=== PATIENT | female | born 1980 | race Caucasian/White ===

== ENCOUNTER 2016-08-31 19:19 | Observation (INO) ==
[2016-08-31] MEDS ORDERED: LORazepam 2 MG/1 ML VIAL IM STA (19:30)
[2016-08-31] MEDS ORDERED: SODIUM CHLORIDE 0.9% 1,000 ML IV STA (20:03)
[2016-08-31 20:38] LABS: Apearance,Urine Slightly Hazy (Clear); Bilirubin,Urine Negative (Negative); Blood, Urine Negative (Negative); Glucose,Urine (UA) Negative (Negative); Ketones,Urine Negative (Negative); Mucus,Urine Occasional /LPF (Occasional); Nitrite,Urine Negative (Negative); Protein,Urine Negative; Squamous Epithelial Cell,Urine Occasional /HPF (0-10); Urine Color Yellow (Yellow); Urine Specific Gravity 1.008 (1.001-1.035); Urine Urobilinogen < 2.0 EU/DL (0.2-1.0); WBC,Urine 3 /HPF (0-6)
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
[2016-08-31 20:45] LABS: Barbiturates Screen,Urine Negative (Negative); Benzodiazepines Screen,Urine Negative (Negative); Cannabinoid Screen,Urine Negative (Negative); Opiate Screen,Urine Negative (Negative); Phencyclidine Screen,Urine Negative (Negative)
[2016-08-31 20:50] LABS: Basophils # 0.1 10*3/uL (0.0-0.2); Basophils % 1.1 % (0.0-0.8); Eosinophils # 0.1 10*3/uL (0.0-0.87); Eosinophils % 1.9 % (0.00-10.9); Hematocrit 26.9 VOL% (35.7-47.0); Hemoglobin 8.5 GM/DL (12.0-16.0); Immature Granulocytes % 0.5 %; Immature Granulocytes Absolute 0.03 #; Lymphocytes # 1.6 10*3/uL (1.4-4.0); Lymphocytes % 25.8 % (21.3-54.2); Mean Corpuscular HGB Conc 31.6 GM/DL (32-36); Mean Corpuscular Hemoglobin 32 PG (27-34); Mean Corpuscular Volume 100.4 FL (87-102); Mean Platelet Volume 9.8 FL (9.6-12.0); Monocytes # 0.6 10*3/uL (0.11-0.8); Monocytes % 9.9 % (1.7-12.7); Neutrophils # 3.8 10*3/uL (1.4-7.4); Neutrophils % 60.8 % (38.7-73.9); Platelet Count 139 T/CUMM (130-400); Red Blood Count 2.68 MC/CUMM (3.8-5.5); Red Cell Distribution Width 17.2 % (9.3-17.3); White Blood Count 6.2 T/CUMM (4-12)
[2016-08-31 20:58] LABS: Alanine Aminotransferase 43 U/L (13-56); Albumin 2.7 G/DL (3.4-5.0); Alkaline Phosphatase 274 U/L (45-117); Aspartate Amino Transferase 113 U/L (0-37); Bilirubin,Total < 0.39 MG/DL (0.2-1.0); Blood Urea Nitrogen 7 MG/DL (7-18); Glucose 100 MG/DL (74-106); Osmolality,Calculated 291.3 MOS/KG (273-304); Sodium 148 MMOL/L (136-145); Total Protein 6.5 G/DL (6.4-8.3)
[2016-08-31] MEDS ORDERED: POTASSIUM CHLORIDE 20 MEQ TABLET PO STA (21:16)
[2016-08-31] MEDS ORDERED: LORazepam 2 MG/1 ML VIAL ONE (21:19)
[2016-08-31] MEDS ORDERED: POTASSIUM CHLORIDE 20 MEQ TABLET PO ONE (21:20)
[2016-08-31] MEDS ORDERED: LORazepam 2 MG/1 ML VIAL IV STA (21:22)
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
[2016-09-01] MEDS ORDERED: SODIUM CHLORIDE 0.9% 1,000 ML IV SCH (01:07)
[2016-09-01] MEDS ORDERED: LORazepam 2 MG/1 ML VIAL IV STA (01:07)
[2016-09-01] MEDS ORDERED: ACETAMINOPHEN 325 MG TABLET PO PRN (01:07)
[2016-09-01] MEDS ORDERED: ONDANSETRON 4 MG/2 ML VIAL IV PRN (01:07)
[2016-09-01] MEDS: POTASSIUM CHLORIDE 20 MEQ TABLET PO SCH ×3 (01:18→21:49)
[2016-09-01 01:32] LABS: Anisocytosis Slight; Hypochromasia 1+; Platelet Estimate Adequate
[2016-09-01] MEDS: LORazepam 2 MG/1 ML VIAL IV SCH ×6 (01:42→21:51)
[2016-09-01] MEDS ORDERED: PHENYTOIN INJ 1,000 MG in SODIUM CHLORIDE 0.9% 100 ML IV ONE (02:00)
[2016-09-01] MEDS: PIPERACILLIN/TAZOBACTAM 3,375 MG in SODIUM CHLORIDE 0.9% 100 ML IV SCH ×2 (03:04→10:40)
[2016-09-01 06:03] LABS: Basophils % 0.9 % (0.0-0.8); Eosinophils # 0.1 10*3/uL (0.0-0.87); Eosinophils % 2.2 % (0.00-10.9); Hematocrit 24.3 VOL% (35.7-47.0); Hemoglobin 7.5 GM/DL (12.0-16.0); Immature Granulocytes % 0.4 %; Immature Granulocytes Absolute 0.02 #; Lymphocytes # 1.1 10*3/uL (1.4-4.0); Lymphocytes % 23.9 % (21.3-54.2); Mean Corpuscular HGB Conc 30.9 GM/DL (32-36); Mean Corpuscular Hemoglobin 31 PG (27-34); Mean Corpuscular Volume 100.8 FL (87-102); Mean Platelet Volume 9.9 FL (9.6-12.0); Monocytes # 0.7 10*3/uL (0.11-0.8); Monocytes % 14.4 % (1.7-12.7); Neutrophils # 2.7 10*3/uL (1.4-7.4); Neutrophils % 58.2 % (38.7-73.9); Platelet Count 123 T/CUMM (130-400); Red Blood Count 2.41 MC/CUMM (3.8-5.5); Red Cell Distribution Width 17.7 % (9.3-17.3); White Blood Count 4.6 T/CUMM (4-12)
[2016-09-01 06:33] LABS: Albumin 2.4 G/DL (3.4-5.0); Bilirubin,Total 0.9 MG/DL (0.2-1.0); Calcium 7.3 MG/DL (8.5-10.1); Magnesium 1.6 MG/DL (1.8-2.4); Potassium 3.5 MMOL/L (3.5-5.1)
--- NOTE | 2016-09-01 08:11 | XRay Report ---
XR chest 1V portable Indication: Abnormal breath sounds Comparison: None available Findings: The heart and mediastinum are normal in size and configuration. The pulmonary vascularity is normal in caliber. No lung infiltrates, effusions, pneumothorax or other abnormality is demonstrated. Impression: Normal chest x-ray PROCEDURE INTERPRETED AT [facility] DEPARTMENT OF RADIOLOGY Final Report Signed by: Dr. Dustin Pandey
[2016-09-01] MEDS ORDERED: SODIUM CHLORIDE 0.9% 250 ML IV PRN (08:13)
--- NOTE | 2016-09-01 08:13 | CT Report ---
CT brain Indication: Seizure, head injury Comparison: None available Technique: Axial CT imaging of the brain is performed without contrast with 3 mm increments. Findings: No evidence of hemorrhage, mass mass effect midline shift or acute infarct seen. The brain parenchyma attenuation and differentiation appears within normal limits. The ventricles and cisterns are normal in caliber. No cranial or skull base abnormality is identified. Impression: No evidence of acute intracranial process demonstrated. This CT exam was performed using one or more the following dose reduction techniques: Automated exposure control, adjustment of the MA and/or KV according to patient size, or use of iterative reconstruction technique. PROCEDURE INTERPRETED AT [facility] DEPARTMENT OF RADIOLOGY Final Report Signed by: Dr. Dustin Pandey
[2016-09-01] MEDS ORDERED: THIAMINE INJ 100 MG, FOLIC ACID INJ 1 MG, MULTIVITAMIN INJ 10 ML in SODIUM CHLORIDE 0.9... IV SCH (08:15)
--- NOTE | 2016-09-01 08:17 | CT Report ---
CT maxillofacial Indication: Trauma , facial swelling Comparison: None available Technique: Axial CT imaging of the facial bones was performed without contrast. Computer reformatting is viewed in the coronal plane. Findings: Soft tissue swelling is present adjacent to the left mandible, left maxilla and left zygoma. There is fracture of the left nasal bone with slight medial displacement. The septum is bowed without distinct fracture line identified, could be from previous injury. No other evidence of fracture seen. No fluid or abnormal density is seen in the nasal passage or sinuses. There is increased density in the left mastoid air cells and middle ear. No other abnormal soft tissue density is present. No evidence of orbit abnormality is seen. Impression: Left nasal bone fracture. Possible nasal septum fracture. Left-sided facial soft tissue injury. No other acute injuries seen. Increased density in the left mastoid air cells and middle ear may indicate mastoiditis. This CT exam was performed using one or more the following dose reduction techniques: Automated exposure control, adjustment of the MA and/or KV according to patient size, or use of iterative reconstruction technique. PROCEDURE INTERPRETED AT [facility] DEPARTMENT OF RADIOLOGY Final Report Signed by: Dr. Dustin Pandey
[2016-09-01] MEDS: PHENYTOIN ER 100 MG CAPSULE PO SCH (08:41)
[2016-09-01] MEDS: PANTOPRAZOLE 40 MG TABLET PO SCH (08:41)
--- NOTE | 2016-09-01 09:17 | XRay Report ---
XR elbow 3V RT Indication: Pain and swelling Comparison: None available Findings: No evidence of fracture seen. The alignment of the joints appears normal. No degenerative change is present. No soft tissue abnormality is seen. Impression: No evidence of abnormality demonstrated PROCEDURE INTERPRETED AT [facility] DEPARTMENT OF RADIOLOGY Final Report Signed by: Dr. Dustin Pandey
--- NOTE | 2016-09-01 09:18 | XRay Report ---
XR forearm RT Indication: Pain and swelling Comparison: None available Findings: No evidence of fracture seen. The alignment of the joints appears normal. No degenerative change is present. No soft tissue abnormality is seen. Impression: No evidence of abnormality demonstrated. PROCEDURE INTERPRETED AT [facility] DEPARTMENT OF RADIOLOGY Final Report Signed by: Dr. Dustin Pandey
--- NOTE | 2016-09-01 09:18 | XRay Report ---
XR humerus RT Indication: Pain and swelling Comparison: None available Findings: No evidence of fracture seen. The alignment of the joints appears normal. No degenerative change is present. No soft tissue abnormality is seen. Impression: No evidence of abnormality demonstrated PROCEDURE INTERPRETED AT [facility] DEPARTMENT OF RADIOLOGY Final Report Signed by: Dr. Dustin Pandey
--- NOTE | 2016-09-01 09:19 | XRay Report ---
XR hand 2V RT Indication: Pain and swelling Comparison: None available Findings: There is fracture of the proximal fifth metacarpal, poorly defined. No other fractures are seen. The alignment of the joints appears normal. No degenerative change is present. No soft tissue abnormality is seen. Impression: Fracture of the proximal fifth metacarpal described above. PROCEDURE INTERPRETED AT [facility] DEPARTMENT OF RADIOLOGY Final Report Signed by: Dr. Dustin Pandey
--- NOTE | 2016-09-01 09:20 | XRay Report ---
XR wrist 2V RT Indication: Pain and swelling Comparison: None available Findings: There is fracture of the proximal fifth metacarpal poorly defined. The alignment of the joints appears normal. No degenerative change is present. No soft tissue abnormality is seen. Impression: Proximal fifth metacarpal fracture as described above. PROCEDURE INTERPRETED AT [facility] DEPARTMENT OF RADIOLOGY Final Report Signed by: Dr. Dustin Pandey
[2016-09-01] MEDS ORDERED: MORPHINE 2 MG/1 ML SYRINGE ONE (10:05)
[2016-09-01] MEDS: MORPHINE 2 MG/1 ML SYRINGE IV PRN ×3 (10:06→19:20)
[2016-09-01] MEDS: 1: THIAMINE INJ 100 MG, FOLIC ACID INJ 1 MG, MULTIVITAMIN INJ 10 ML in SODIUM CHLORIDE 0 IV SCH ×2 (10:42→22:00)
--- NOTE | 2016-09-01 11:13 | Consultation ---
Assessment and Plan - Time spent with patient Time spent with patient: Less than 30 minutes (1) Infection of left external ear Status: Acute Assessment and plan: no active infection of left ear. This represents chronic traumatic changes, only needs topical antibiotic ointment. Current Visit: Yes (2) Nasal bone fracture Status: Acute Assessment and plan: old nasal bone fracture, minimally displaced. no treatment indicated. Current Visit: Yes History of Present Illness - Data of Consult Patient: known to practice within the last 3 years Consult date: 09/01/16 Requesting Physician: Ann Mathews - Consult Narrative Reason for consult: facial trauma History of present illness: Ms. Chau is a 36 year old female known to me from previous hospitalization at [facility]. Discussed her history with nurse on her case, very similar history. CC: Ann Mathews MD - Home Medications and Allergies Home Medications: Home Medications Medication Instructions Recorded Confirmed Type No Known Home Medications [No 09/01/16 09/01/16 History Known Home Medications] Allergies/Adverse Reactions: Allergies Allergy/AdvReac Type Severity Reaction Status Date / Time No Known Allergies Allergy Unverified 07/24/16 01:30 Medical,Surgical,& Family Hx - Medical History Cardio: History of: Hypertension Psychological: History of: Anxiety Disorders Neurology: History of: Seizures Gastrointestinal: History of: Hepatitis (hep c), Pancreatitis - Social History Smoking Status: Unknown if ever smoked Frequency of Alcohol Use: Unknown Type of Drug Use: Unknown Exam - Constitutional Vitals: Period Temp Pulse Resp BP Sys/Montemayor Pulse Ox Last 24 Hr 97.9 F-99.4 F 110-117 16-20 122-133/71-75 95-98 - ENT ENT exam: Present: other (bruising around left eye. ear examination unchanged from previous hospitalization.) Results - Labs CBC & BMP: 09/01/16 05:15 09/01/16 05:15 - Diagnostic Findings Procedure: CT: image reviewed by me (reviewed imaging. I see no new, acute facial fractures. No hematoma of left ear.)
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
[2016-09-01] MEDS: CIPROFLOXACIN/DEXAMETHASONE OTIC SUSP 7.5 ML BOTTLE LEFT EAR SCH ×2 (14:58→21:56)
[2016-09-02] MEDS: MORPHINE 2 MG/1 ML SYRINGE IV PRN ×6 (00:01→20:25)
[2016-09-02] MEDS: LORazepam 2 MG/1 ML VIAL IV SCH ×6 (02:17→22:14)
[2016-09-02] MEDS: 1: THIAMINE INJ 100 MG, FOLIC ACID INJ 1 MG, MULTIVITAMIN INJ 10 ML in SODIUM CHLORIDE 0 IV SCH ×2 (04:14→14:52)
[2016-09-02 07:49] LABS: Calcium 8.1 MG/DL (8.5-10.1); Osmolality,Calculated 274.4 MOS/KG (273-304); Potassium 4.6 MMOL/L (3.5-5.1)
[2016-09-02] MEDS: POTASSIUM CHLORIDE 20 MEQ TABLET PO SCH ×2 (08:14→20:24)
[2016-09-02] MEDS: PHENYTOIN ER 100 MG CAPSULE PO SCH ×4 (08:14→20:24)
[2016-09-02] MEDS: PANTOPRAZOLE 40 MG TABLET PO SCH (08:14)
[2016-09-02] MEDS: CIPROFLOXACIN/DEXAMETHASONE OTIC SUSP 7.5 ML BOTTLE LEFT EAR SCH ×2 (08:14→20:32)
[2016-09-02 08:42] LABS: Basophils # 0.1 10*3/uL (0.0-0.2); Eosinophils # 0.2 10*3/uL (0.0-0.87); Eosinophils % 3.8 % (0.00-10.9); Immature Granulocytes % 0.2 %; Immature Granulocytes Absolute 0.01 #; Lymphocytes # 1.3 10*3/uL (1.4-4.0); Lymphocytes % 25.2 % (21.3-54.2); Mean Corpuscular HGB Conc 32.4 GM/DL (32-36); Mean Corpuscular Hemoglobin 31 PG (27-34); Mean Corpuscular Volume 95.7 FL (87-102); Monocytes # 0.7 10*3/uL (0.11-0.8); Monocytes % 13.1 % (1.7-12.7); Neutrophils # 2.9 10*3/uL (1.4-7.4); Neutrophils % 56.7 % (38.7-73.9); Platelet Count 101 T/CUMM (130-400); Red Cell Distribution Width 19.1 % (9.3-17.3)
--- NOTE | 2016-09-02 08:46 | Neurology Consult Note ---
History of Present Illness History of present illness: Ms. Chau is a 36 year old female with a history of seizures presented to the ER with seizures. Per ER note, EMS was called to the scene because patient had multiple seizures. Patient is homeless. Patient also smell of alcohol. Patient also has bruising and swelling on the left side of her face including her ear as well as multiple bruises and and abrasions on her body. Patient has right arm swelling and pain. Patient question about the injuries and she reports that is all due to seizures. She reports she took Depakote for seizures but I question compliance. Patient reports having frequent seizures. Caregiver reported almost 20 seizure in last 1 year. She goes to the [facility]. patient also reports been homeless for several years. Patient is a poor historian. In the ER, workup showed alcohol intoxication, possible nasal fracture, possible right sided zygomatic fracture, and other medical lab abnormalities. She is presently on Dilantin 100 mg p.o. daily. Also no urinary incontinence or tongue biting reported with seizures. Home Medications Medication Instructions Recorded Confirmed Type No Known Home Medications [No 09/01/16 09/01/16 History Known Home Medications] Allergies Allergy/AdvReac Type Severity Reaction Status Date / Time No Known Allergies Allergy Unverified 07/24/16 01:30 12 point system: reviewed and no additional remarkable complaints except as stated Medical,Surgical,& Family Hx - Medical History Cardio: History of: Hypertension Psychological: History of: Anxiety Disorders Neurology: History of: Seizures Gastrointestinal: History of: Hepatitis (hep c), Pancreatitis - Social History Smoking Status: Unknown if ever smoked Frequency of Alcohol Use: Unknown Type of Drug Use: Unknown Exam - Constitutional Vitals: Period Temp Pulse Resp BP Sys/Montemayor Pulse Ox Last 24 Hr 97.1 F-98.9 F 77-95 16-20 128-160/69-96 96-99 Exam: GENERAL: Patient is in no acute distress. NECK: Neck is supple. There is no JVD. No carotid bruits present. No thyroid masses. CVS: First and second heart sounds are normal. There is no S3 present. Regular rate and rhythm. RESPIRATORY: Lungs are clear to auscultation without any rales or rhonchi. ABDOMEN: Soft and non-tender. Bowel sounds are present. There is no hepatosplenomegaly. EXT: There is no palpable edema. Peripheral pulses are present. Skin: No rashes Central Nervous system: General: Alert, awake and Oriented x 3 Speech: Fluent Comprehension: Intact and normal Facial expressions: Normal Cranial Nerves: CN1/Olfactory: Normal CN II/ Optic: Normal, Visual Moore unreliable CN III, and : RICKI & EOMI CN V: Normal & intact CN VII: face is symmetric CNVIII: Normal CN XI/X/XI/XII: Intact and Normal Motor: Bulk and Tone is normal. Strength in the right 3-4/5 Strength in the left 3-4/5 Sensory: Grossly intact for all the modalities of PP, LT and temp sense Reflexes: 1+ and symmetrical Cerebellar function: Normal finger to nose and heel to jones testing. Toes: Equivocal Gait: Not tested at this Results - Labs CBC & BMP: 09/01/16 05:15 09/02/16 06:34 Assessment and Plan (1) Seizure disorder Status: Acute Assessment and plan: Change Dilantin 100 mg p.o. 3 times Discussed in detail with the patient and her caregiver that nothing will help and unless she quit alcohol or any other recreational drugs. She voiced understanding of everything No driving, swimming or operating heavy machinery for 6-8 month Current Visit: Yes (2) Alcoholism Status: Acute Assessment and plan: Counseled regarding cessation of alcoholism. Discussed the option of AA program. Thank you for the consult Current Visit: Yes
[2016-09-02 08:56] LABS: Hemoglobin 10.7 GM/DL (12.0-16.0); Red Blood Count 3.45 MC/CUMM (3.8-5.5)
[2016-09-02 09:10] LABS: Giant Platelets Few; Hypochromasia 1+; Ovalocytes Slight; Platelet Estimate Decreased
--- NOTE | 2016-09-02 14:46 | Hospitalist Progress Note ---
Assessment and Plan (1) Seizure Status: Acute Assessment and plan: .CT head showed no acute changes. This is most likely related to chronic alcoholism. Follow Neurology's recommendations. Seizure precautions will get phenytoin level Current Visit: Yes (2) Hypernatremia Status: Acute Assessment and plan: resolved Current Visit: Yes (3) Hypokalemia Status: Acute Assessment and plan: resolved Current Visit: Yes (4) Infection of left external ear Status: Acute Assessment and plan: ENT saw and said there was no active infection of left ear. This represents chronic traumatic changes, only needs topical antibiotic ointment.Today Ear cultures grew gram negative rods and gram positive cocci. Plan Will resume IV antibiotics continue topical antibiotics, follow recommendations follow Bc Current Visit: Yes (5) Alcoholism Status: Acute Assessment and plan: continue with IVf and Banana bag. Continue with IV ativan prn for withdrawal Current Visit: Yes (6) Acute blood loss anemia Status: Acute Assessment and plan: s/p transfusion with 2units of blood. follow stool for occult blood. Current Visit: Yes (7) Fall Status: Acute Assessment and plan: during seizures resulting in left nasl bone fracture-old nasal bone fracture, minimally displaced. no treatment indicated as per ENT. also having a right proximal 5th metacarpal fracture- will have OT to evaluate Current Visit: Yes (8) Homelessness Status: Acute Assessment and plan: follow showcase maker's recommendations. Current Visit: Yes Hospitalist: Subjective Interval history: patient was seen, was in the room.Neurology saw this am and has made some recommendations. senior finance manager working on disposition. patient and Hobby are homeless, they want to go to the same place. Exam - Constitutional Vitals: Period Temp Pulse Resp BP Sys/Montemayor Pulse Ox Last 24 Hr 97.5 F-98.8 F 76-93 16-20 131-160/69-100 94-99 General appearance: no acute distress, other (swollen rt face) - Head Head exam: Present: normal inspection - Respiratory Respiratory exam: Present: clear to auscultation bilaterally - Cardiovascular Cardiovascular exam: Present: regular rate and rhythm - GI/Abdominal GI/Abdominal exam: Present: normal bowel sounds - Extremities Exam Extremities exam: Present: normal inspection Results - Labs CBC & BMP: 09/02/16 08:28 09/02/16 06:34 Lab Results: I have reviewed the past 24 hour labs
[2016-09-02] MEDS: PIPERACILLIN/TAZOBACTAM 3,375 MG in SODIUM CHLORIDE 0.9% 100 ML IV SCH ×2 (15:15→22:14)
[2016-09-03] MEDS: MORPHINE 2 MG/1 ML SYRINGE IV PRN ×6 (00:21→22:24)
[2016-09-03] MEDS: 1: THIAMINE INJ 100 MG, FOLIC ACID INJ 1 MG, MULTIVITAMIN INJ 10 ML in SODIUM CHLORIDE 0 IV SCH ×4 (02:21→21:08)
[2016-09-03] MEDS: LORazepam 2 MG/1 ML VIAL IV SCH ×6 (02:21→21:08)
[2016-09-03] MEDS: PIPERACILLIN/TAZOBACTAM 3,375 MG in SODIUM CHLORIDE 0.9% 100 ML IV SCH (06:25)
[2016-09-03 06:42] LABS: Basophils # 0.1 10*3/uL (0.0-0.2); Basophils % 1.8 % (0.0-0.8); Eosinophils # 0.2 10*3/uL (0.0-0.87); Eosinophils % 4.9 % (0.00-10.9); Hematocrit 35.7 VOL% (35.7-47.0); Hemoglobin 11.3 GM/DL (12.0-16.0); Immature Granulocytes % 0.4 %; Immature Granulocytes Absolute 0.02 #; Lymphocytes # 1.2 10*3/uL (1.4-4.0); Lymphocytes % 24.5 % (21.3-54.2); Mean Corpuscular HGB Conc 31.7 GM/DL (32-36); Mean Corpuscular Hemoglobin 31 PG (27-34); Mean Corpuscular Volume 97.3 FL (87-102); Mean Platelet Volume 10.8 FL (9.6-12.0); Monocytes # 0.8 10*3/uL (0.11-0.8); Neutrophils # 2.6 10*3/uL (1.4-7.4); Neutrophils % 52.4 % (38.7-73.9); Platelet Count 120 T/CUMM (130-400); Red Blood Count 3.67 MC/CUMM (3.8-5.5); Red Cell Distribution Width 18.5 % (9.3-17.3); White Blood Count 4.9 T/CUMM (4-12)
[2016-09-03 07:06] LABS: Eosinophils 9 % (0-10); Hypochromasia 1+; Lymphocytes 28 % (20-55); Platelet Estimate Normal; Segmented Neutrophils 50 % (50-85); Total Cells Counted 100
[2016-09-03 07:24] LABS: Albumin 2.9 G/DL (3.4-5.0); Calcium 8.7 MG/DL (8.5-10.1); Magnesium 2.1 MG/DL (1.8-2.4); Osmolality,Calculated 271.7 MOS/KG (273-304); Phosphorous 3.5 MG/DL (2.5-4.9); Potassium 4.6 MMOL/L (3.5-5.1); Total Protein 7.1 G/DL (6.4-8.3)
[2016-09-03] MEDS: PHENYTOIN ER 100 MG CAPSULE PO SCH ×3 (08:49→21:08)
[2016-09-03] MEDS: POTASSIUM CHLORIDE 20 MEQ TABLET PO SCH ×2 (08:49→21:08)
[2016-09-03] MEDS: PANTOPRAZOLE 40 MG TABLET PO SCH (08:49)
[2016-09-03] MEDS: CIPROFLOXACIN/DEXAMETHASONE OTIC SUSP 7.5 ML BOTTLE LEFT EAR SCH (09:12)
--- NOTE | 2016-09-03 11:43 | Hospitalist Progress Note ---
Assessment and Plan (1) Seizure Status: Acute Assessment and plan: .CT head showed no acute changes. This is most likely related to chronic alcoholism. Follow Neurology's recommendations. Seizure precautions Follow phenytoin level Current Visit: Yes (2) Hypernatremia Status: Acute Assessment and plan: resolved Current Visit: Yes (3) Hypokalemia Status: Acute Assessment and plan: resolved Current Visit: Yes (4) Infection of left external ear Status: Acute Assessment and plan: ENT saw and said there was no active infection of left ear. This represents chronic traumatic changes, only needs topical antibiotic ointment. Ear cultures grew Acinetobacter Iwoffi and Staph aureus Plan Will switch IV antibiotics to Gentamicin IV and drops BC- no growth Current Visit: Yes (5) Alcoholism Status: Acute Assessment and plan: continue with IVf and Banana bag. Continue with IV ativan prn for withdrawal Current Visit: Yes (6) Acute blood loss anemia Status: Acute Assessment and plan: s/p transfusion with 2units of blood. follow stool for occult blood. Current Visit: Yes (7) Fall Status: Acute Assessment and plan: during seizures resulting in left nasl bone fracture-old nasal bone fracture, minimally displaced. no treatment indicated as per ENT. also having a right proximal 5th metacarpal fracture- will have OT to evaluate Current Visit: Yes (8) Homelessness Status: Acute Assessment and plan: follow foster care case manager's recommendations. Current Visit: Yes (9) Swelling of right hand Status: Acute Assessment and plan: most likely due to cellulitis to r/o DVT, patient also has a fracture of the right proximal 5th metacarpal -continue IV antibiotics -BC- no growth so far -Doppler to r/o DVT Current Visit: Yes Hospitalist: Subjective Interval history: Patient seen. Her right hand was swollen and tender. She states she was in a lot of pain and was also having problems with her balance. Serg babin is working aggressively on her discharge. She wants a facility that will accommodate her and her hobby. She requests for clothes upon dc. Exam - Constitutional Vitals: Period Temp Pulse Resp BP Sys/Montemayor Pulse Ox Last 24 Hr 97.4 F-98.6 F 68-87 16-20 128-146/68-100 94-98 General appearance: no acute distress, other (swollenleft face) - Respiratory Respiratory exam: Present: clear to auscultation bilaterally - Cardiovascular Cardiovascular exam: Present: regular rate and rhythm - GI/Abdominal GI/Abdominal exam: Present: normal bowel sounds - Extremities Exam Extremities exam: Present: edema (right hand swelling) Results - Labs CBC & BMP: 09/03/16 06:15 09/03/16 06:15 Lab Results: I have reviewed the past 24 hour labs
--- NOTE | 2016-09-03 12:27 | Ultrasound Report ---
Exam: US venous doppler UE RT Date: 09/03/2016 10:33 AM Indication: Pain and swelling Comparison: None Findings: Grayscale color flow Doppler duplex imaging was performed with spectral waveform analysis the with real-time ultrasound imaging with image stored and captured. Right internal jugular, subclavian, axillary, brachial, basilic veins are patent with normal augmentation and compression. Impression: 1. No obvious deep vein thrombosis. 2. The right cephalic vein is not visualized. PROCEDURE INTERPRETED AT [facility] DEPARTMENT OF RADIOLOGY Final Report Signed by: Dr. Chong Valencia
[2016-09-03] MEDS: GENTAMICIN INJ 400 MG in SODIUM CHLORIDE 0.9% 100 ML IV SCH (13:20)
--- NOTE | 2016-09-03 14:43 | Neurology Progress Note ---
Neurology - PN : Subjective Interval history: Patient seems to be doing okay neurologically. No more seizures reported. Still complaining of pain. Exam (Progress Note) - Constitutional Vitals: Period Temp Pulse Resp BP Sys/Montemayor Pulse Ox Last 24 Hr 97.4 F-98.6 F 68-87 16-20 128-145/68-93 94-98 Exam: GENERAL: Patient is in no acute distress. NECK: Neck is supple. There is no JVD. No carotid bruits present. No thyroid masses. CVS: First and second heart sounds are normal. There is no S3 present. Regular rate and rhythm. RESPIRATORY: Lungs are clear to auscultation without any rales or rhonchi. ABDOMEN: Soft and non-tender. Bowel sounds are present. There is no hepatosplenomegaly. EXT: There is no palpable edema. Peripheral pulses are present. Skin: No rashes Central Nervous system: General: Alert, awake and Oriented x 3 Speech: Fluent Comprehension: Intact and normal Facial expressions: Normal Cranial Nerves: CN1/Olfactory: Normal CN II/ Optic: Normal, Visual Moore unreliable CN III, and : RICKI & EOMI CN V: Normal & intact CN VII: face is symmetric CNVIII: Normal CN XI/X/XI/XII: Intact and Normal Motor: Bulk and Tone is normal. Strength in the right 3-4/5 Strength in the left 3-4/5 Sensory: Grossly intact for all the modalities of PP, LT and temp sense Reflexes: 1+ and symmetrical Cerebellar function: Normal finger to nose and heel to jones testing. Toes: Equivocal Gait: Able to get up and take a few steps. Results - Labs CBC & BMP: 09/03/16 06:15 09/03/16 06:15 Assessment and Plan (1) Seizure disorder Status: Acute Assessment and plan: Continue Dilantin at the same dose which is 100 mg 3 times daily No further intervention from neuro standpoint Sign off please call as needed Current Visit: Yes (2) Alcoholism Status: Acute Assessment and plan: Counseled regarding cessation of alcoholism. Discussed the option of AA program. Thank you for the consult Current Visit: Yes
[2016-09-03] MEDS: GENTAMICIN 0.3% OPH SOLN 5 ML BOTTLE LEFT EAR SCH ×2 (14:51→21:20)
[2016-09-04] MEDS: LORazepam 2 MG/1 ML VIAL IV SCH ×6 (01:34→21:22)
[2016-09-04] MEDS: MORPHINE 2 MG/1 ML SYRINGE IV PRN ×6 (02:48→22:49)
[2016-09-04] MEDS: POTASSIUM CHLORIDE 20 MEQ TABLET PO SCH ×2 (09:36→21:19)
[2016-09-04] MEDS: PHENYTOIN ER 100 MG CAPSULE PO SCH ×3 (09:37→21:20)
[2016-09-04] MEDS: PANTOPRAZOLE 40 MG TABLET PO SCH (09:37)
[2016-09-04] MEDS: GENTAMICIN 0.3% OPH SOLN 5 ML BOTTLE LEFT EAR SCH ×3 (10:47→21:26)
[2016-09-04] MEDS: 1: THIAMINE INJ 100 MG, FOLIC ACID INJ 1 MG, MULTIVITAMIN INJ 10 ML in SODIUM CHLORIDE 0 IV SCH (10:47)
[2016-09-04] MEDS: GENTAMICIN INJ 400 MG in SODIUM CHLORIDE 0.9% 100 ML IV SCH (14:44)
--- NOTE | 2016-09-04 17:03 | Hospitalist Progress Note ---
Assessment and Plan (1) Seizure Status: Acute Assessment and plan: .CT head showed no acute changes. This is most likely related to chronic alcoholism. Follow Neurology's recommendations. Seizure precautions Follow phenytoin level Current Visit: Yes (2) Hypernatremia Status: Acute Assessment and plan: resolved Current Visit: Yes (3) Hypokalemia Status: Acute Assessment and plan: resolved Current Visit: Yes (4) Infection of left external ear Status: Acute Assessment and plan: ENT saw and said there was no active infection of left ear. This represents chronic traumatic changes, only needs topical antibiotic ointment. Ear cultures grew Acinetobacter Iwoffi and Staph aureus Plan Continue with IV Gentamicin IV and drops BC- no growth Current Visit: Yes (5) Alcoholism Status: Acute Assessment and plan: continue with IVF and Banana bag. Continue with IV ativan prn for withdrawal Current Visit: Yes (6) Acute blood loss anemia Status: Acute Assessment and plan: s/p transfusion with 2units of blood. Stool occult blood-negative Current Visit: Yes (7) Fall Status: Acute Assessment and plan: during seizures resulting in left nasal bone fracture-old nasal bone fracture, minimally displaced. no treatment indicated as per ENT. also having a right proximal 5th metacarpal fracture- continue with OT. Current Visit: Yes (8) Homelessness Status: Acute Assessment and plan: follow gearcase assembler's recommendations. Current Visit: Yes (9) Swelling of right hand Status: Acute Assessment and plan: most likely due to cellulitis. Doppler USS ruled out DVT, patient also has a fracture of the right proximal 5th metacarpal -continue IV antibiotics -BC- no growth so far Current Visit: Yes Hospitalist: Subjective Interval history: Patient seen. No new issues. Exam - Constitutional Vitals: Period Temp Pulse Resp BP Sys/Montemayor Pulse Ox Last 24 Hr 97.6 F-97.8 F 79-90 18-18 124-133/76-87 94-99 General appearance: no acute distress - Head Head exam: Present: normal inspection - Respiratory Respiratory exam: Present: clear to auscultation bilaterally - Cardiovascular Cardiovascular exam: Present: regular rate and rhythm - GI/Abdominal GI/Abdominal exam: Present: normal bowel sounds - Extremities Exam Extremities exam: Present: normal inspection Results - Labs CBC & BMP: 09/03/16 06:15 09/03/16 06:15 Lab Results: I have reviewed the past 24 hour labs
[2016-09-04] MEDS: SODIUM CHLORIDE 0.9% 1,000 ML IV SCH (22:49)
[2016-09-04] MEDS: THIAMINE INJ 100 MG, FOLIC ACID INJ 1 MG, MULTIVITAMIN INJ 10 ML in SODIUM CHLORIDE 0.9... IV SCH (22:52)
[2016-09-05] MEDS: LORazepam 2 MG/1 ML VIAL IV SCH ×3 (01:43→09:00)
[2016-09-05] MEDS: MORPHINE 2 MG/1 ML SYRINGE IV PRN ×2 (03:10→06:53)
--- NOTE | 2016-09-05 07:40 | Discharge Summary ---
<Gina Seamanda - Last Filed: 09/05/16 08:04> Hospital Course - Hospital Course Hospital Course: This is a very unfortunate 36 year old female that presented to the ED at [facility] on 08/31 for evaluation of possible seizure and altered mental status. The patient has a very complex medical history significant for polysubstance abuse, hypertension, pancreatitis, anxiety disorders, and Hepatitis C. Apparently, the patient was found lying face down in the [place] covered in dirt, urine, and feces. She was transported to the ED per EMS. At the time of presentation, the patient was noted to have a strong smell of alcohol to her and multiple ecchymotic areas to her entire upper and lower torso. In addition, she also was noted to have bruising and swelling on the left side of her face including her ear, right arm pain and swelling; in which she attributed to seizure activity. At the time of ED encounter, she reported medication non-compliance; reporting that her last dose was the week prior to presentation. The patient reported that she and her were both homeless for several years.Upon arrival to the ED, she was assessed and treatment was initiated. Labs were obtained; which revealed gross elevations in her serum alcohol level at 470, hypokalemia at 3.0. In addition, her hepatic function was noted as vern than favorable with alkaline phosphate at [address] at 113. CT head/face reported possible nasal fracture, possible right sided zygomatic fracture, and other medical lab abnormalities. She was subsequently admitted to the hospitalist service for further treatment and evaluation. At the time of admission, ENT and neurology consults were requested which were all essentially unremarkable. managed services sales consultant was consulted to evaluate for available outpatient resources. The patient's condition is stable. She has not experienced any seizure activity since admission. Today, we feel that she is appropriate for discharge to follow-up as directed. Discharge Plan - Discharge Data Disposition: Disch To Home/Self Care - Discharge Medications New Acetaminophen Tab [Tylenol Tab] 325 mg PO Q4H PRN #0 tablet PRN Reason: fever, headache/body aches Folic Acid 0.8 mg PO DAILY #20 tablet HYDROcodone/ACETAMIN 5-325 [[place] 5-325] 1 tablet PO Q4H PRN #20 tablet PRN Reason: Pain Mild (1-3) Multivitamin [Chewable-Jessica] 1 each PO DAILY #30 tab.chew Phenytoin ER Cap [Dilantin Cap] 100 mg PO TID #90 capsule Sulfameth/Trimeth 800-160 Tab [Bactrim DS Tab] 1 tablet PO BID #10 tablet Thiamine Tab [Vitamin B1 Tab] 100 mg PO DAILY #30 tablet Gentamicin 0.3% Oph Soln [Garamycin 0.3% Oph Soln] 3 drop LEFT EAR TID #1 bottle Pantoprazole Tab [Protonix Tab] 40 mg PO DAILY #30 tablet - Follow Up or Referral - Forms/Instructions Exam - Constitutional Vitals: Period Temp Pulse Resp BP Sys/Montemayor Pulse Ox Last 24 Hr 97.6 F-98.2 F 71-82 16-20 117-138/66-91 93-98 Discharge Results Procedures and tests throughout hospitalization: Pending Orders 09/01/16 17:39 Blood Culture Routine 09/02/16 15:09 Phenytoin, Total and Free, S Routine 09/04/16 Occult Blood, Stool Routine Labs on day of discharge: Labs from last 24 hours 09/04/16 12:27 Random Gentamicin < 0.2 Preliminary micro results at discharge 09/01/16 17:39 Blood Culture - Preliminary Blood No growth at 3 days 09/01/16 17:39 Blood Culture - Preliminary Blood No growth at 3 days DS: Provider Date of admission: 08/31/16 22:26 Primary care physician: . Fabi PCP Attending physician on admission: Jose A Hsu Consults: 09/01/16 01:07 Consult to Case Mgmt/Social Srvs [CONS] Routine Reason for Case Mgmt/Social Srvs: Other Consult Comment: homeless; seizure meds Consult to Physician [CONS] Routine Comment: Consulting Provider: Joon Giraldo Consulting Provider Notified: No When should Consulting Provider be notified: In am Person Notified: Dr. Giraldo Date Notified: 09/01/16 Time Notified: 07:32 09/01/16 02:14 Consult to Dietitian [CONS] Routine Reason for Dietitian: Dietary Consult 09/01/16 09:33 Consult to Physician [CONS] Routine Comment: seizures? Consulting Provider: Steve Riley When should Consulting Provider be notified: In am Person Notified: Idalmis Date Notified: 09/02/16 Time Notified: 09:12 09/02/16 15:52 Consult to Occupational Therapy [CONS] Routine Reason for Occupational Therapy: Other Consult Comment: has right hand fracture, possible splint 09/03/16 10:32 Consult to Physical Therapy [CONS] Routine Reason for Physical Therapy: Evaluate and Treat Consult Comment: unsteady balance 09/03/16 13:11 Consult to Pharmacy [CONS] Routine Reason for Pharmacy Consult: Dose/Manage Gentamicin Discharging clinician: Jennifer Seaman CNP <Ann Mathews - Last Filed: 09/05/16 10:31> Hospital Course - Hospital Course Hospital Course: ENT saw for her left external ear infection although they said there was no active infection of left ear and this could represent chronic traumatic changes , only needs topical antibiotic ointment. Ear cultures grew Acinetobacter Iwoffi and Staph aureus so we started IV and Otic gentamycin.She will be dcd on Bactrim - Time spent with patient Time with patient DS: Greater than 30 minutes (Time spent 35mins) Diagnosis - Discharge Diagnosis (1) Seizure Status: Acute (2) Hypernatremia Status: Acute (3) Hypokalemia Status: Acute (4) Infection of left external ear Status: Acute (5) Alcoholism Status: Acute (6) Acute blood loss anemia Status: Acute (7) Fall Status: Acute (8) Homelessness Status: Acute (9) Swelling of right hand Status: Acute Discharge Plan - Discharge Data Condition at Discharge: Stable Discharge Diet: advance to your usual diet Activity: resume usual activities as tolerated - Forms/Instructions Additional Discharge Instructions: Follow with PCP in 1week Exam - Constitutional General appearance: no acute distress - Head Head exam: Present: normal inspection - ENT ENT exam: Present: other (left ear external wound noted) - Respiratory Respiratory exam: Present: clear to auscultation bilaterally - Cardiovascular Cardiovascular exam: Present: regular rate and rhythm - GI/Abdominal GI/Abdominal exam: Present: normal bowel sounds - Extremities Exam Extremities exam: Present: normal inspection
[2016-09-05 08:14] VITALS: BP 117/89
[2016-09-05] MEDS: PHENYTOIN ER 100 MG CAPSULE PO SCH (08:54)
[2016-09-05] MEDS: PANTOPRAZOLE 40 MG TABLET PO SCH (08:54)
[2016-09-05] MEDS: GENTAMICIN 0.3% OPH SOLN 5 ML BOTTLE LEFT EAR SCH (08:54)
[2016-09-05] MEDS: SODIUM CHLORIDE 0.9% 1,000 ML IV SCH (08:54)
[2016-09-05] MEDS: POTASSIUM CHLORIDE 20 MEQ TABLET PO SCH (08:54)
[2016-09-05] MEDS: 1: THIAMINE INJ 100 MG, FOLIC ACID INJ 1 MG, MULTIVITAMIN INJ 10 ML in SODIUM CHLORIDE 0 IV SCH (08:55)
[2016-09-05] MEDS: THIAMINE INJ 100 MG, FOLIC ACID INJ 1 MG, MULTIVITAMIN INJ 10 ML in SODIUM CHLORIDE 0.9... IV SCH (08:57)
[2016-09-05 14:45] LABS: Phenytoin Free Serum < 0.8 mcg/mL (1.0 - 2.0)
== END 2016-09-05 14:11 | disposition home or self-care (01) ==
LOC: N.EDINP 19:19 → N.ED 19:19 → SUATTDRO 22:26 → N.5E 09-01 00:18
PROVIDERS: ADMIT Family Medicine; ATTEND Internal Medicine

== ENCOUNTER 2016-10-11 21:36 | Observation (INO) ==
[2016-10-11] MEDS ORDERED: METOCLOPRAMIDE 10 MG/2 ML VIAL IV STA (22:00)
[2016-10-11] MEDS ORDERED: SODIUM CHLORIDE 0.9% 1,000 ML IV STA (22:00)
[2016-10-11] MEDS ORDERED: ONDANSETRON 4 MG/2 ML VIAL IV STA (22:00)
[2016-10-11] MEDS ORDERED: PHENYTOIN INJ 500 MG in SODIUM CHLORIDE 0.9% 100 ML IV STA (22:00)
[2016-10-11] MEDS ORDERED: PANTOPRAZOLE 40 MG VIAL IV STA (22:00)
[2016-10-11] MEDS ORDERED: THIAMINE INJ 100 MG, FOLIC ACID INJ 1 MG, MAGNESIUM SULF INJ 2 GM, MULTIVITAMIN INJ 10 ... IV STA (22:00)
--- NOTE | 2016-10-11 22:05 | Emergency Department Note ---
Arrival - Arrival Chief Complaint: Alcohol Intoxication ED Nursing Triage Note: Pt arrives via ems with complaints of having a drinking problem and wanting to go to [place] for treatment. Pt states that she has been drinking vodka and beer for the last 8 years and wants help to quit. States that she had some nausea and vomiting earlier. Pt also complains of pain everywhere. Mode of Arrival: Stretcher Limitations: No Limitations Source: Patient Time Seen by Provider: 10/11/16 22:00 - History of Present Illness HPI Narrative: This 36-year-old white female presents intoxicated and strongly smelling of alcohol with complaints of 8 years of alcohol abuse on top of chronic hepatitis C. The patient tianna has decided she would like to stop the alcohol and is here to be evaluated for alliance. She states she is consumed unknown quantities of vodka and beer today and for as long as she can remember. She states she likewise has complaints of midepigastric burning and nausea without vomiting, bright red blood per rectum, or melanotic stools and does have a history of pancreatitis in the past. She likewise complains of redness, tenderness and swelling of the feet for an unknown period of time. Currently she is in no acute medical distress but as noted, severely intoxicated. Onset (ago): year(s) Date of Last Menstrual Period: 09/07/16 Allergies/Adverse Reactions: Allergies Allergy/AdvReac Type Severity Reaction Status Date / Time No Known Allergies Allergy Unverified 07/24/16 01:30 Home Medications: Home Medications Medication Instructions Recorded Confirmed Type Phenytoin ER Cap [Dilantin Cap] 100 mg PO TID #90 capsule 09/05/16 10/11/16 Rx Review of System - Review of System 12 point system: reviewed and no additional remarkable complaints except as stated - Review of System Constitutional: Present: as per HPI Gastrointestinal: Present: as per HPI Neurological: Present: as per HPI Medical,Surgical,& Family Hx - Medical History Cardio: History of: Hypertension Psychological: History of: Anxiety Disorders Neurology: History of: Seizures Gastrointestinal: History of: Hepatitis (hep c), Pancreatitis - Social History Smoking Status: Current every day smoker Frequency of Alcohol Use: Frequently Type of Drug Use: None Exam Physical Examination: GENERAL: Disheveled white female in no acute distress. HEENT: Normocephalic. No trauma. Moist mucous membranes. EOMI. PERRLA. ENT NML except for meth mouth NECK: Supple. No adenopathy. CARDIAC: Regular. No murmurs. Heart rate 82 CHEST: Clear to auscultation. No respiratory distress. O2 sat 98% ABDOMEN: Soft. Tender mid epigastrium with pain radiating to back. Active bowel sounds. EXTREMITIES: No trauma. Normal ROM. No pedal edema. Evidence of multiple bites that have become infected on both feet with incipient cellulitis SKIN: No diaphoresis. No rash. Feet as above NEURO: Alert. Oriented 3 with motor, sensory, vibratory intact but smells strongly of alcohol and is clearly inebriated no focal deficits. Vital Signs: Vital Signs Temperature 97.7 F 10/11/16 21:36 Pulse Rate 91 H 10/11/16 21:36 Respiratory Rate 20 10/11/16 21:36 Blood Pressure 126/79 10/11/16 21:36 O2 Sat by Pulse Oximetry 95 10/11/16 21:36 Course - Reevaluation(s) Reevaluation #1: Advised patient hospitalization for normalization with subsequent alliance consultation. - Consultations Consultation #1: Discussed with hospitalist service who will admit for further evaluation treatment. Results - Labs CBC & BMP: 10/11/16 23:36 10/11/16 23:36 Labs: I reviewed the laboratory noted leukopenia, hyponatremia, hypokalemia, subtherapeutic Dilantin level, and elevated alcohol. - Diagnostic Findings Procedure: Chest x-ray: image reviewed by me, report reviewed by me (Normal chest) Disposition Clinical Impression: Alcohol intoxication, Hypokalemia, Cellulitis Case discussed with: patient Disposition: Still a Patient Condition: Stable Time of Disposition: 00:29
[2016-10-11] MEDS ORDERED: CLINDAMYCIN INJ 900 MG in PREMIX 1 EACH IV STA (22:06)
[2016-10-11] MEDS ORDERED: METOCLOPRAMIDE 10 MG/2 ML VIAL ONE (22:22)
[2016-10-11] MEDS ORDERED: PANTOPRAZOLE 40 MG VIAL IV ONE (22:22)
[2016-10-11] MEDS ORDERED: CLINDAMYCIN INJ 50 ML IV ONE (22:22)
[2016-10-11] MEDS ORDERED: ONDANSETRON 4 MG/2 ML VIAL ONE (22:22)
[2016-10-12 00:05] LABS: Eosinophils # 0.1 10*3/uL (0.0-0.87); Eosinophils % 4.7 % (0.00-10.9); Hematocrit 31.6 VOL% (35.7-47.0); Hemoglobin 10.5 GM/DL (12.0-16.0); Lymphocytes # 1.2 10*3/uL (1.4-4.0); Lymphocytes % 40.5 % (21.3-54.2); Mean Corpuscular HGB Conc 33.2 GM/DL (32-36); Mean Corpuscular Hemoglobin 32 PG (27-34); Mean Corpuscular Volume 95.2 FL (87-102); Mean Platelet Volume 9.7 FL (9.6-12.0); Monocytes # 0.4 10*3/uL (0.11-0.8); Neutrophils # 1.2 10*3/uL (1.4-7.4); Neutrophils % 40.8 % (38.7-73.9); Platelet Count 171 T/CUMM (130-400); Red Blood Count 3.32 MC/CUMM (3.8-5.5); Red Cell Distribution Width 17.3 % (9.3-17.3)
[2016-10-12 00:11] LABS: Alanine Aminotransferase 30 U/L (13-56); Albumin 2.8 G/DL (3.4-5.0); Alkaline Phosphatase 232 U/L (45-117); Amylase 48 U/L (25-115); Aspartate Amino Transferase 61 U/L (0-37); Bilirubin,Total < 0.39 MG/DL (0.2-1.0); Blood Urea Nitrogen 5 MG/DL (7-18); Calcium 7.7 MG/DL (8.5-10.1); Glucose 117 MG/DL (74-106); Osmolality,Calculated 289.4 MOS/KG (273-304); PT Patient Result 10.6 SECS; Phosphorous 3.3 MG/DL (2.5-4.9); Potassium 2.8 MMOL/L (3.5-5.1); Sodium 147 MMOL/L (136-145)
[2016-10-12] MEDS ORDERED: BISACODYL 5 MG TABLET PO PRN (01:24)
[2016-10-12] MEDS ORDERED: MORPHINE 2 MG/1 ML SYRINGE IV PRN (01:24)
[2016-10-12] MEDS ORDERED: ONDANSETRON 4 MG/2 ML VIAL IV PRN (01:24)
[2016-10-12] MEDS ORDERED: ACETAMINOPHEN 325 MG TABLET PO PRN (01:24)
[2016-10-12] MEDS ORDERED: POTASSIUM CHLORIDE RIDER 10 MEQ in PREMIX 1 EACH IV PRN (01:27)
[2016-10-12] MEDS ORDERED: THIAMINE INJ 100 MG, FOLIC ACID INJ 1 MG, MAGNESIUM SULF INJ 2 GM, MULTIVITAMIN INJ 10 ... IV SCH (01:30)
--- NOTE | 2016-10-12 01:30 | Hospitalist History & Physical ---
Assessment and Plan (1) Alcohol intoxication Status: Acute Current Visit: Yes (2) Cellulitis of both feet Status: Acute Current Visit: Yes (3) Hypernatremia Status: Acute Current Visit: Yes (4) Hypokalemia Status: Acute Current Visit: Yes (5) Seizure disorder Status: Acute Current Visit: No (6) Noncompliance Status: Acute Assessment and plan: Plan: IV antibiotics for cellulitis of the feet Ativan as needed for alcohol withdrawal Restart Dilantin for her seizure disorder Consult social welfare research worker for alliance placement Banana bag with magnesium, replace potassium and correct sodium DVT/GI prophylaxis Current Visit: Yes History of Present Illness Chief complaint: Intoxicated, painful feet History of present illness: Ms. Epps is a 36 year old female who is homeless, alcoholic, and has a seizure disorder but does not take her Dilantin. Apparently she has been walking around the streets and has been intoxicated, then decided to call an ambulance because "I want to get off alcohol." She appears disheveled, she also reports painful feet which show multiple excoriations with early cellulitis. She rates her pain a 6 out of 10 at worst, exacerbated by walking. She denies chest pain , shortness of breath. She does have nausea but no vomiting, the nausea was relieved with medication in the emergency room. She also has chronic hepatitis C. She has occasional shaking spells which she states is consistent with alcohol withdrawal. She cannot remember when her last seizure was. Home Medications Medication Instructions Recorded Confirmed Type Phenytoin ER Cap [Dilantin Cap] 100 mg PO TID #90 capsule 09/05/16 10/11/16 Rx Allergies Allergy/AdvReac Type Severity Reaction Status Date / Time No Known Allergies Allergy Unverified 07/24/16 01:30 Medical,Surgical,& Family Hx - Medical History Cardio: History of: Hypertension Psychological: History of: Anxiety Disorders Neurology: History of: Seizures Endocrine: No history of: Diabetes Mellitus (NIDDM) Gastrointestinal: History of: Hepatitis (hep c), Pancreatitis - Surgical History Abdominal Surgeries: Surgical HX of: Cholecystectomy Reproductive Surgeries: Surgical HX of;: Section - Family History Family History: Reports;: Family Hypertension - Social History Smoking Status: Current every day smoker Have you smoked in the last 12 months: Yes Time spent discussing smoking cessation with patient: 3 to 10 minutes Frequency of Alcohol Use: Frequently (1-2 pints of vodka daily) Type of Drug Use: None Marital Status: Unknown Lives With:: Homeless Functional capacity: independent ambulation Review of systems: A 12 point review of systems is negative except as specified in the HPI Exam - Constitutional Vitals: Period Temp Pulse Resp BP Sys/Montemayor Pulse Ox Last 24 Hr 97.7 F-97.7 F 82-91 18-20 115-126/71-79 95-98 Exam: EXAM: CONSTITUTIONAL: Disheveled, smells of alcohol, tremulous, anxious HEENT: NC, AT, OP benign, RICKI, EOMI CV: RRR no m/g/r RESP: clear B/L, no w/r/r GI: abd soft, NT, ND, +bowel sounds INTEGUMENTARY: Multiple excoriations on the feet in various stages of healing with cellulitis EXTREMITIES: No lower extremity edema NEURO: no focal deficits PSYCH: Awake, alert, cooperative, intoxicated Results - Labs CBC & BMP: 10/11/16 23:36 10/11/16 23:36 Lab Results: I have reviewed the past 24 hour labs - Diagnostic Findings Procedure: Chest x-ray: image reviewed by me
[2016-10-12 01:37] LABS: Apearance,Urine CLEAR (Clear); Bilirubin,Urine Negative (Negative); Blood, Urine Negative (Negative); Glucose,Urine (UA) Negative (Negative); Ketones,Urine Negative (Negative); Mucus,Urine Occasional /LPF (Occasional); Nitrite,Urine Negative (Negative); Protein,Urine Negative; RBC,Urine <1 /HPF (0-4); Squamous Epithelial Cell,Urine Occasional /HPF (0-10); Urine Color Straw (Yellow); Urine Specific Gravity 1.006 (1.001-1.035); Urine Urobilinogen < 2.0 EU/DL (0.2-1.0); WBC,Urine 1 /HPF (0-6)
[2016-10-12 01:46] LABS: Barbiturates Screen,Urine Negative (Negative); Benzodiazepines Screen,Urine Negative (Negative); Cannabinoid Screen,Urine Negative (Negative); Opiate Screen,Urine Negative (Negative); Phencyclidine Screen,Urine Negative (Negative)
[2016-10-12] MEDS ORDERED: LORazepam 2 MG/1 ML VIAL ONE (01:58)
[2016-10-12] MEDS: LORazepam 2 MG/1 ML VIAL IV PRN ×5 (02:00→18:21)
[2016-10-12] MEDS ORDERED: THIAMINE 100 MG IV SCH (02:30)
[2016-10-12] MEDS ORDERED: MULTIVITAMIN IV SCH (02:30)
[2016-10-12] MEDS ORDERED: FOLI IV SCH (02:30)
[2016-10-12] MEDS ORDERED: DEXTROSE 5% IV SCH (02:30)
[2016-10-12] MEDS ORDERED: NACL 0.45% IV SCH (02:30)
[2016-10-12] MEDS: POTASSIUM CHLORIDE 20 MEQ TABLET PO PRN ×4 (02:59→10:35)
[2016-10-12] MEDS: chlordiazePOXIDE 25 MG CAPSULE PO SCH ×3 (02:59→14:33)
[2016-10-12] MEDS: CEFTAROLINE 600 MG in SODIUM CHLORIDE 0.9% 100 ML IV SCH ×2 (03:31→16:41)
[2016-10-12 03:45] LABS: Basophils % 0.7 % (0.0-0.8); Eosinophils # 0.1 10*3/uL (0.0-0.87); Eosinophils % 4.8 % (0.00-10.9); Hematocrit 30.4 VOL% (35.7-47.0); Hemoglobin 9.8 GM/DL (12.0-16.0); Immature Granulocytes % 0.3 %; Immature Granulocytes Absolute 0.01 #; Lymphocytes # 1.4 10*3/uL (1.4-4.0); Lymphocytes % 46.6 % (21.3-54.2); Mean Corpuscular HGB Conc 32.2 GM/DL (32-36); Mean Corpuscular Hemoglobin 31 PG (27-34); Mean Corpuscular Volume 95.9 FL (87-102); Mean Platelet Volume 10.3 FL (9.6-12.0); Monocytes # 0.4 10*3/uL (0.11-0.8); Monocytes % 12.7 % (1.7-12.7); Neutrophils % 34.9 % (38.7-73.9); Platelet Count 160 T/CUMM (130-400); Red Blood Count 3.17 MC/CUMM (3.8-5.5); Red Cell Distribution Width 17.5 % (9.3-17.3); White Blood Count 2.9 T/CUMM (4-12)
[2016-10-12 04:06] LABS: Albumin 2.5 G/DL (3.4-5.0); Bilirubin,Total 0.4 MG/DL (0.2-1.0); Osmolality,Calculated 285.7 MOS/KG (273-304); Total Protein 5.9 G/DL (6.4-8.3)
[2016-10-12] MEDS ORDERED: ENOXAPARIN 40 MG/0.4 ML SYRINGE SUBCUT SCH (09:00)
[2016-10-12] MEDS ORDERED: PANTOPRAZOLE 40 MG TABLET PO SCH (09:00)
[2016-10-12] MEDS: PHENYTOIN ER 100 MG CAPSULE PO SCH ×2 (09:01→14:33)
--- NOTE | 2016-10-12 09:41 | XRay Report ---
Portable chest Date: 10/11/2016 Clinical history: Shortness of breath Comparison: 08/31/2016 Technique: Portable AP sitting chest Findings: The heart is borderline in size. Minimal atelectasis at the lung bases. Unremarkable mediastinum and osseous structures. Impression: Minimal atelectasis at the lung bases. PROCEDURE INTERPRETED AT [facility] DEPARTMENT OF RADIOLOGY Final Report Signed by: Dr. Fatimah May
[2016-10-12] MEDS ORDERED: SODIUM CHLORIDE 0.9% 1,000 ML IV SCH (11:00)
--- NOTE | 2016-10-12 17:52 | Discharge Summary ---
Hospital Course - Hospital Course Hospital Course: Ms. Epps was admitted with alcohol intoxication, cellulitis of the feet, hypokalemia, hypernatremia, and noncompliance with seizure medications. She requested help getting to [facility]. We observed her, corrected her electrolytes , restarted her Dilantin, and started antibiotics for her bilateral foot cellulitis. She was strongly encouraged to stop smoking. She has had an uneventful hospital course. She will need benzodiazepines as needed for alcohol withdrawal. She will complete her course of oral clindamycin. She will be sent to [facility] today. - Time spent with patient Time with patient DS: Greater than 30 minutes Time spent discussing smoking cessation with patient: 3 to 10 minutes Diagnosis - Discharge Diagnosis (1) Alcohol intoxication Status: Resolved (2) Cellulitis of both feet Status: Acute (3) Hypernatremia Status: Resolved (4) Hypokalemia Status: Resolved (5) Seizure disorder Status: Chronic (6) Noncompliance Status: Chronic Specialty Discharge - Follow Up or Referrals - Speciality Discharge Instructions Hospitalist Instructions: Discharge to [facility] Discharge Plan - Discharge Data Disposition: Disch/Xfer to Psych Hos Condition at Discharge: Stable Discharge Diet: advance to your usual diet - Discharge Medications New Clindamycin Cap [Cleocin Cap] 300 mg PO TID #15 capsule chlordiazePOXIDE [Librium] 25 mg PO Q6H PRN #30 capsule PRN Reason: Alcohol Withdrawal Continue Phenytoin ER Cap [Dilantin Cap] 100 mg PO TID #90 capsule - Follow Up or Referral - Forms/Instructions Exam - Constitutional Vitals: Period Temp Pulse Resp BP Sys/Montemayor Pulse Ox Last 24 Hr 97.7 F-99.3 F 82-103 18-20 105-144/62-89 91-100 Exam: EXAM: CONSTITUTIONAL: Disheveled, nontoxic, no acute distress HEENT: NC, AT, OP benign, RICKI, EOMI CV: RRR no m/g/r RESP: clear B/L, no w/r/r GI: abd soft, NT, ND, +bowel sounds INTEGUMENTARY: Multiple excoriations on the feet in various stages of healing with improving cellulitis EXTREMITIES: No lower extremity edema NEURO: no focal deficits PSYCH: Awake, alert, cooperative Discharge Results Procedures and tests throughout hospitalization: Pending Orders 10/13/16 04:00 Basic Metabolic Panel w/Mg IN AM Comp Blood Count Auto Diff IN AM Folate IN AM Vitamin B12 IN AM Labs on day of discharge: Labs from last 24 hours 10/12/16 10/12/16 10/12/16 15:10 02:25 02:25 WBC 2.9 L RBC 3.17 L Hgb 9.8 L Hct 30.4 L MCV 95.9 MCH 31 MCHC 32.2 RDW 17.5 H Plt Count 160 MPV 10.3 Neut % (Auto) 34.9 L Lymph % (Auto) 46.6 [place] % (Auto) 12.7 Eos % (Auto) 4.8 Baso % (Auto) 0.7 Neut # (Auto) 1.0 L Lymph # (Auto) 1.4 [place] # (Auto) 0.4 Eos # (Auto) 0.1 Baso # (Auto) 0.0 Immature Gran % 0.3 Nucleated RBC % 0.0 Immature Gran # 0.01 Nucleated RBCs # 0.00 INR PT Patient/Control Mix Sodium 145 Potassium 4.3 3.0 L Chloride 112 H Carbon Dioxide 21 Anion Gap 15.0 BUN 4 L Creatinine 0.40 L GFR Calculation 138 BUN/Creatinine Ratio 10.00 Glucose 108 H Calculated Osmolality 285.7 Calcium 7.0 L Phosphorus Total Bilirubin 0.40 AST 51 H ALT 25 Alkaline Phosphatase 206 H Total Protein 5.9 L Albumin 2.5 L Globulin 3.4 Albumin/Globulin Ratio 0.7 L Amylase Lipase Urine Color Urine Appearance Urine pH Ur Specific [place] Urine Protein Urine Glucose (UA) Urine Ketones Urine Blood Urine Nitrate Urine Bilirubin Urine Urobilinogen Urine Leukocytes Urine RBC Urine WBC Ur Squamous Epith Cells Urine Mucus Ur Culture Indicated? Urine Opiates Screen Ur Barbiturates Screen Phenytoin Ur Phencyclidine Scrn U Amphetamine/Methamph U Benzodiazepines Scrn U Cocaine Metab Screen U Cannabinoids Screen Serum Alcohol 10/12/16 10/12/16 10/11/16 01:32 01:32 23:36 WBC RBC Hgb Hct MCV MCH MCHC RDW Plt Count MPV Neut % (Auto) Lymph % (Auto) [place] % (Auto) Eos % (Auto) Baso % (Auto) Neut # (Auto) Lymph # (Auto) [place] # (Auto) Eos # (Auto) Baso # (Auto) Immature Gran % Nucleated RBC % Immature Gran # Nucleated RBCs # INR PT Patient/Control Mix Sodium Potassium Chloride Carbon Dioxide Anion Gap BUN Creatinine GFR Calculation BUN/Creatinine Ratio Glucose Calculated Osmolality Calcium Phosphorus Total Bilirubin AST ALT Alkaline Phosphatase Total Protein Albumin Globulin Albumin/Globulin Ratio Amylase Lipase Urine Color Straw Urine Appearance Clear Urine pH 5.0 Ur Specific [place] 1.006 Urine Protein Negative Urine Glucose (UA) Negative Urine Ketones Negative Urine Blood Negative Urine Nitrate Negative Urine Bilirubin Negative Urine Urobilinogen < 2.0 H Urine Leukocytes Negative Urine RBC <1 Urine WBC 1 Ur Squamous Epith Cells Occasional Urine Mucus Occasional Ur Culture Indicated? Not indicated Urine Opiates Screen Negative Ur Barbiturates Screen Negative Phenytoin < 0.5 L Ur Phencyclidine Scrn Negative U Amphetamine/Methamph Negative U Benzodiazepines Scrn Negative U Cocaine Metab Screen Negative U Cannabinoids Screen Negative Serum Alcohol 10/11/16 10/11/16 10/11/16 23:36 23:36 23:36 WBC 3.0 L RBC 3.32 L Hgb 10.5 L Hct 31.6 L MCV 95.2 MCH 32 MCHC 33.2 RDW 17.3 Plt Count 171 MPV 9.7 Neut % (Auto) 40.8 Lymph % (Auto) 40.5 [place] % (Auto) 13.0 H Eos % (Auto) 4.7 Baso % (Auto) 1.0 H Neut # (Auto) 1.2 L Lymph # (Auto) 1.2 L [place] # (Auto) 0.4 Eos # (Auto) 0.1 Baso # (Auto) 0.0 Immature Gran % 0.0 Nucleated RBC % 0.0 Immature Gran # 0.00 Nucleated RBCs # 0.00 INR 1.0 PT Patient/Control Mix 10.6 Sodium 147 H Potassium 2.8 L Chloride 112 H Carbon Dioxide 26 Anion Gap 11.8 BUN 5 L Creatinine 0.50 L GFR Calculation 130 BUN/Creatinine Ratio 10.00 Glucose 117 H Calculated Osmolality 289.4 Calcium 7.7 L Phosphorus 3.3 Total Bilirubin < 0.39 AST 61 H ALT 30 Alkaline Phosphatase 232 H Total Protein 7.0 Albumin 2.8 L Globulin 4.2 H Albumin/Globulin Ratio 0.6 L Amylase 48 Lipase 166.0 Urine Color Urine Appearance Urine pH Ur Specific [place] Urine Protein Urine Glucose (UA) Urine Ketones Urine Blood Urine Nitrate Urine Bilirubin Urine Urobilinogen Urine Leukocytes Urine RBC Urine WBC Ur Squamous Epith Cells Urine Mucus Ur Culture Indicated? Urine Opiates Screen Ur Barbiturates Screen Phenytoin Ur Phencyclidine Scrn U Amphetamine/Methamph U Benzodiazepines Scrn U Cocaine Metab Screen U Cannabinoids Screen Serum Alcohol 269 DS: Provider Date of admission: 10/12/16 01:24 Primary care physician: . No PCP Attending physician on admission: Stephen Bush DO Consults: 10/12/16 01:26 Consult to Case Mgmt/Social Srvs [CONS] Routine Reason for Case Mgmt/Social Srvs: Discharge Planning Psychiatric Management 10/12/16 02:48 Consult to Pastoral Services [CONS] Routine Comment: Pastoral Screen: Request Rad Tech Visit Pastoral Screen Source of Request: Other Discharging clinician: Stephen Bush DO Expected date of discharge: 10/12/16
[2016-10-12 19:43] VITALS: BP 126/83
[2016-10-13] MEDS ORDERED: THIAMINE 100 MG TABLET PO SCH (09:00)
[2016-10-14] MEDS ORDERED: DEXTROSE 5% NACL 0.45% 1,000 ML IV SCH (02:30)
== END 2016-10-12 19:30 ==
LOC: EDBD → EDUNIT# → N.ED 21:36 → N.EDINP 21:36 → SUATTDRO 10-12 01:24 → N.5E 10-12 01:59
PROVIDERS: ADMIT Internal Medicine; ATTEND Internal Medicine